=== PATIENT | female | born 1975 | race Caucasian/White ===

== ENCOUNTER 2018-03-20 14:57 | Outpatient (CLI) | payer OTHER ==
--- NOTE | 2018-03-22 14:29 | MMO ---
BILATERAL DIGITAL SCREENING MAMMOGRAMS: HISTORY: A 42-year-old female who presents for digital screening mammography. COMPARISON: 09/07/16. This patient's mammogram is interpreted with the assistance of computer-aided detection. FINDINGS: Breasts are heterogeneously dense which can obscure small masses. There are a few typically benign c alcifications. Stable bilateral areas of parenchymal density asymmetry.. IMPRESSION: BI-RADS category 2, benign findings. Continued routine screening. BIRADS 2: Benign Finding(s) Routine annual screening mammography (for women over age 40) POS: NIC
== END 2018-03-20 14:58 | disposition home or self-care (01) ==
LOC: SCSMAMMO 14:57
PROVIDERS: ATTEND Obstetrics & Gynecology
DX: Z12.31 Encounter for screening mammogram for malignant neoplasm of breast (principal)
CPT/HCPCS: 77067